=== PATIENT | male | born 1945 | race Hispanic/Latino ===

== ENCOUNTER 2019-02-08 18:29 | Inpatient (IN) | payer MEDICARE, OTHER ==
[~2019-02-08] VITALS: Ht 162.6 cm; Wt 68.5 kg
[2019-02-08 19:22] LABS: BASOPHILS % 0.4 % (0.0-1.0); EOSINOPHILS # (AUTO) 0.1 (0.0-0.4); EOSINOPHILS % 0.5 % (0.0-6.0); HEMATOCRIT 40.2 % (38.2-49.6); HEMOGLOBIN 13.7 g/dL (14.0-18.0); LYMPHOCYTES # (AUTO) 1.4 (1.0-3.2); LYMPHOCYTES % 13.7 % (18.0-39.1); MEAN CORPUSCULAR HGB CONC 34.1 g/dL (31-35); MEAN CORPUSCULAR VOLUME 82.2 fL (81-99); MONOCYTES % 9.7 % (4.4-11.3); NEUTROPHILS # (AUTO) 7.5 (2.1-6.9); NEUTROPHILS % 75.3 % (38.7-80.0); PLATELET COUNT 259 x10e3/uL (140-360); RED BLOOD COUNT 4.89 x10e6/uL (4.3-5.7); RED CELL DISTRIBUTION WIDTH 13.2 % (11.7-14.4)
[2019-02-08 19:38] LABS: INR 0.97; PARTIAL THROMBOPLASTIN TIME 35.9 seconds (23.8-35.5); PROTHROMBIN TIME 13.4 seconds (11.9-14.5)
[2019-02-08 19:45] LABS: ALBUMIN 3.8 g/dL (3.5-5.0); ALBUMIN/GLOBULIN RATIO 0.9 (0.8-2.0); ANION GAP 18.1 mmol/L (8-16); CALCIUM 10.2 mg/dL (8.4-10.2); CREATININE, SERUM 1.25 mg/dL (0.72-1.25); POTASSIUM 4.1 mmol/L (3.5-5.1)
--- NOTE | 2019-02-08 20:00 | Diagnostic Imaging Report ---
EXAMINATION: CHEST SINGLE (PORTABLE) INDICATION: Right sided weakness. COMPARISON: None FINDINGS: TUBES and LINES: None. LUNGS: Low lung volumes which decreases sensitivity and specificity for pathology. High density nodule projecting at the right costophrenic angle likely represents calcified granuloma. Mild patchy bibasilar opacities, likely atelectasis. Central vascular congestion without pulmonary edema PLEURA: No pleural effusion or pneumothorax. HEART AND MEDIASTINUM: The cardiomediastinal silhouette is unremarkable. BONES AND SOFT TISSUES: No acute osseous lesion. Soft tissues are unremarkable. UPPER ABDOMEN: No free air under the diaphragm. IMPRESSION: No acute radiographic abnormality Signed by: Dr. Ross Langford MD on 02/08/2019 7:57 PM
--- NOTE | 2019-02-08 20:12 | Diagnostic Imaging Report ---
History: Right arm weakness, 1 day. Comparison studies:None Technique: Axial images were obtained from the brain and cervical spine. Coronal and sagittal images reconstructed from the axial data. Intravenous contrast: None Dose modulation, iterative reconstruction, and/or weight based adjustment of the mA/kV was utilized to reduce the radiation dose to as low as reasonably achievable. Findings: Head CT: Scalp/skull: No abnormalities. No fractures, blastic or lytic lesions. Brain sulci: Mildly prominent. Ventricles: Mildly prominent. No hydrocephalus. Extra-axial spaces: No masses. No fluid collections. Parenchyma: 1.4 cm hypodensity left posterior putamen, without volume loss. Small hypodensities of the left centrum semiovale. No masses, hemorrhage, acute or chronic cortical vascular insults. Sellar/suprasellar region: No abnormalities. Craniocervical junction: Patent foramen magnum. No Chiari one malformation. Atherosclerotic calcifications of the carotid siphons. Cervical spine CT: Fractures: None. Soft tissues: No gross abnormalities. Atlantoaxial articulation: Intact. Alignment: Normal lordosis. No scoliosis. Cervicomedullary junction: No abnormalities. Patent foramen magnum. Vertebrae: No infection or neoplasm. Degenerative changes: No high-grade canal stenosis or foraminal narrowing. Incidental findings: Atherosclerotic calcifications of the carotid bulbs Mildly proximal esophagus thickened wall, nonspecific. Impression: Head CT: 1. Acute/subacute lacunar infarct in the left putamen. 2. Age indeterminant small left centrum semiovale ovale lacunar infarcts. Cervical spine CT: 1. No acute abnormalities. 2. Cannot exclude ligament, spinal cord and or vascular abnormalities on the basis of this examination. The above finding was reported and acknowledged by Dr. Morgan at 7:59 PM 02/08/2019. Signed by: DR Juan Miguel Mg M.D. on 02/08/2019 8:08 PM
--- OUTSIDE RECORDS SUMMARY | 2019-02-08 20:36 | XMS REPORT ---
Author Author [facility] Address Unknown Phone Unavailable Care Team Providers Care Tool Chaser Name Role Phone Kal FLORES Unavailable Unavailable Problems This patient has no known problems. Allergies, Adverse Reactions, Alerts This patient has no known allergies or adverse reactions. Medications This patient has no known medications. Results Test Description Test Time Test Comments Text Results Atomic Results Result Comments CT CERVICAL SPINE WO 2019-02-08 19:57:00 [place] [id number] [place] [address] Patient Name: CIARRA HANNA MR #: [id number] : 1945 Age/Sex: 73/M Req #: [id number] Adm Physician: Ordered by: EDIL GLOVER NETWORK SYSTEMS ADMINISTRATOR Report #: [id number] Location: ER Room/Bed: Procedure: [id number] CT/CT CERVICAL SPINE WO Exam Date: 02/08/19 Exam Time: 1905 REPORT STATUS: Signed History: Right arm weakness, 1 day. Comparison stud ies:None Technique: Axial images were obtained from the brain and cervical spine. Coronal and sagittal images reconstructed from the axial data. Intravenous contrast: None Dose modulation, iterative reconstruction, and/or weight based adjustment of the mA/kV was utilized to reduce the radiation dose to as low as reasonably achievable. Findings: Head CT: Scalp/skull: No abnormalities. No fractures, blastic or lytic lesions. Brain sulci: Mildly prominent. Ventricles: Mildly prominent. No hydrocephalus. Extra-axial spaces: No masses. No fluid collections. Parenchyma: 1.4 cm hypodensity left posterior putamen, without volume loss. Small hypodensities of the left centrum semiovale. No masses, hemorrhage, acute or chronic cortical vascular insults. Sellar/suprasellar region: No abnormalities. Craniocervical junction: Patent foramen magnum. No Chiari one malformation. Atherosclerotic calcifications of the carotid siphons. Cervical spine CT: Fractures: None. Soft tissues: No gross abnormalities. Atlantoaxial articulation: Intact. Alignment: Normal lordosis. No scoliosis. Cervicomedullary junction: No abnormalities. Patent foramen magnum. Vertebrae: No infection or neoplasm. Degenerative changes: No high-grade canal stenosis or foraminal narrowing. Incidental findings: Atherosclerotic calcifications of the carotid bulbs Mildly proximal esophagus thickened wall, nonspecific. Impression: Head CT: 1. Acute/subacute lacunar infarct in the left putamen. 2. Age indeterminant small left centrum semiovale ovale lacunar infarcts. Cervical spine CT: 1. No acute abnormalities. 2. Cannot exclude ligament, spinal cord and or vascular abnormalities on the basis of this examination. The above finding was reported and acknowledged by Dr. Morgan at 7:59 PM 02/08/2019. Signed by: DR Juan Miguel Mg M.D. on 02/08/2019 8:08 PM Dictated By: JUAN MIGUEL GARZA MD 07 Transcribed By: GILMAR on 02/08/192007 COPY TO: EDIL GLOVER NP CT BRAIN WO 2019-02-08 19:57:00 [place] [address] Patient Name: CIARRA HANNA MR #: [id number] : 1945 Age/Sex: 73/M Req #: [id number] Adm Physician: Ordered by: EDIL GLOVER NP Report #: [id number] Location: ER Room/Bed: Procedure: [id number] CT/CT BRAIN WO Exam Date: 02/08/19 Exam Time: 1905 REPORT STATUS: Signed History: Right arm weakness, 1 day. Comparison studies:None Technique: Axial images were obtained from the brain and cervical spine. Coronal and sagittal images reconstructed from the axial data. Intravenous contrast: None Dose modulation, iterative reconstruction, and/or weight based adjustment of the mA/kV was utilized to reduce the radiation dose to as low as reasonably achievable. Findings: Head CT: Scalp/skull: No abnormalities. No fractures, blastic or lytic lesions. Brain sulci: Mildly prominent. Ventricles: Mildly prominent. No hydrocephalus. Extra-axial spaces: No masses. No fluid collections. Parenchyma: 1.4 cm hypodensity left posterior putamen, without volume loss. Small hypodensities of the left centrum semiovale. No masses, hemorrhage, acute or chronic cortical vascular insults. Sellar/suprasellar region: No abnormalities. Craniocervical junction: Patent foramen magnum. No Chiari one malformation. Atherosclerotic calcifications of the carotid siphons. Cervical spine CT: Fractures: None. Soft tissues: No gross abnormalities. Atlantoaxial articulation: Intact. Alignment: Normal lordosis. No scoliosis. Cervicomedullary junction: No abnormalities. Patent foramen magnum. Vertebrae: No infection or neoplasm. Degenerative changes: No high- grade canal stenosis or foraminal narrowing. Incidental findings: Atherosclerotic calcifications of the carotid bulbs Mildly proximal esophagus thickened wall, nonspecific. Impression: Head CT: 1. Acute/subacute lacunar infarct in the left putamen. 2. Age indeterminant small left centrum semiovale ovale lacunar infarcts. Cervical spine CT: 1. No acute abnormalities. 2. Cannot exclude ligament, spinal cord and or vascular abnormalities on the basis of this examination. The above finding was reported and acknowledged by Dr. Morgan at 7:59 PM 02/08/2019. Signed by: DR Juan Miguel Mg M.D. on 02/08/2019 8:08 PM Dictated By: JUAN MIGUEL GARZA MD 07 Transcribed By: GILMAR on 02/08/192007 COPY TO: EDIL GLOVER NP CHEST SINGLE (PORTABLE) 2019-02-08 19:55:00 [place] [address] Patient Name: CIARRA HANNA MR #: [id number] : 1945 Age/Sex: 73/M Req #: [id number] Adm Physician: Ordered by: EDIL GLOVER NP Report #: [id number] Location: ER Room/Bed: Procedure: [id number] DX/CHEST SINGLE (PORTABLE) Exam Date: 02/08/19 Exam Time: 1915 REPORT STATUS: Signed EXAMINATION: CHEST SINGLE (PORTABLE) IND ICATION: Right sided weakness. COMPARISON: None FINDINGS: TUBES and LINES: None. LUNGS: Low lung volumes which decreases sensitivity and specificity for pathology. High density nodule projecting at the right costophrenic angle likely represents calcified granuloma. Mild patchy bibasilar opacities, likely atelectasis. Central vascular congestion without pulmonary edema PLEURA: No pleural effusion or pneumothorax. HEART AND MEDIASTINUM: The cardiomediastinal silhouette is unremarkable. BONES AND SOFT TISSUES: No acute osseous lesion. Soft tissues are unremarkable. UPPER ABDOMEN: No free air under the diaphragm. IMPRESSION: No acute radiographic abnormality Signed by: Dr. Dameon Dale MD on 02/08/2019 7:57 PM Dictated By: DAMEON DALE MD 56 Transcribed By: GILMAR on 02/08/191956 COPY TO: EDIL GLOVER NP
[2019-02-08] MEDS ORDERED: VITAMIN B-121000 MCG PO (21:24)
[2019-02-08] MEDS ORDERED: GLIMEPIRIDE1 MG PO (21:24)
[2019-02-08] MEDS ORDERED: AMLODIPINE BES2.5 MG PO (21:24)
[2019-02-08] MEDS ORDERED: LISINOPRIL-HCT1 EAC1 PO (21:24)
[2019-02-08] MEDS ORDERED: ONE-TABLET-DAI1 EACH PO (21:24)
[2019-02-08] MEDS ORDERED: LEVOTHYROXINE75 MCG PO (21:24)
[2019-02-08] MEDS ORDERED: ASPIRIN EC81 MG PO (21:24)
[2019-02-08] MEDS ORDERED: METFORMIN HCL500 MG PO (21:24)
[2019-02-08] MEDS ORDERED: OMEPRAZOLE40 MG PO (21:24)
[2019-02-08] MEDS ORDERED: ATORVASTATIN CA40 MG PO (21:24)
[2019-02-08 21:31] VITALS: BP 126/72
[2019-02-08 21:49] VITALS: BP 142/75
[2019-02-09] VITALS (7 sets, daily range): BP systolic 123–190; BP diastolic 59–88
[2019-02-09 05:50] LABS: BASOPHILS # (AUTO) 0.1 (0.0-0.1); BASOPHILS % 1.1 % (0.0-1.0); EOSINOPHILS # (AUTO) 0.3 (0.0-0.4); HEMOGLOBIN 11.5 g/dL (14.0-18.0); LYMPHOCYTES # (AUTO) 2.5 (1.0-3.2); LYMPHOCYTES % 27.5 % (18.0-39.1); MEAN CORPUSCULAR HEMOGLOBIN 27.9 pg (28-32); MEAN CORPUSCULAR HGB CONC 33.8 g/dL (31-35); MEAN CORPUSCULAR VOLUME 82.5 fL (81-99); MONOCYTES # (AUTO) 1.3 (0.2-0.8); MONOCYTES % 14.7 % (4.4-11.3); NEUTROPHILS # (AUTO) 4.8 (2.1-6.9); NEUTROPHILS % 53.4 % (38.7-80.0); PLATELET COUNT 222 x10e3/uL (140-360); RED BLOOD COUNT 4.12 x10e6/uL (4.3-5.7); RED CELL DISTRIBUTION WIDTH 13.3 % (11.7-14.4)
[2019-02-09 06:15] LABS: ALBUMIN 3.1 g/dL (3.5-5.0); ANION GAP 12.7 mmol/L (8-16); CALCIUM 8.8 mg/dL (8.4-10.2); CREATININE, SERUM 1.22 mg/dL (0.72-1.25); POTASSIUM 3.7 mmol/L (3.5-5.1)
--- NOTE | 2019-02-09 07:00 | NUR ---
BEDSIDE ROUNDS COMPLETE NO DISTRESS NOTED, UPDATED ON POC VOICED UNDERSTANDING, DENIES PAIN AT THIS TIME, CALL LIGHT IN REACH WILL CONTINUE TO MONITOR
[2019-02-09] MEDS ORDERED: ONDANSETRON HCL INJ 2MG/ML 2ML 2 MG/ML VIAL IV PRN (08:15)
[2019-02-09] MEDS ORDERED: HYDROCODONE/APAP 5MG-325MG TAB PO PRN (08:15)
[2019-02-09] MEDS ORDERED: ACETAMINOPHEN 325 MG TAB PO PRN (08:15)
[2019-02-09] MEDS ORDERED: LISINOPRIL 20 MG TAB PO SCH (09:00)
[2019-02-09] MEDS: LEVOTHYROXINE SODIUM 75 MCG TAB PO SCH (09:00)
[2019-02-09] MEDS ORDERED: AMLODIPINE BESYLATE 5 MG TAB PO SCH ×2 (09:00→12:15)
[2019-02-09] MEDS ORDERED: ASPIRIN 81 MG CHEW TAB PO ONE (09:30)
[2019-02-09] MEDS: PANTOPRAZOLE SOD 40 MG TABEC PO SCH (09:40)
[2019-02-09] MEDS: GLIMEPIRIDE 2 MG TAB PO SCH (09:40)
[2019-02-09] MEDS: HYDROCHLOROTHIAZIDE 25 MG TAB PO SCH (09:40)
--- NOTE | 2019-02-09 10:01 | NUR ---
PAGED DR. ILA AVELAR COVERING FOR DR MOREIRA, RE CONSULT AWAITING CALL BACK
--- NOTE | 2019-02-09 10:18 | NUR ---
PAGED DR AVELAR AWAITING CALL BACK
--- NOTE | 2019-02-09 10:58 | NUR ---
SPOKE WITH DR AVELAR INFORMED OF CONSULT STATES HE DOES NOT SEE PATIENTS FOR DR PORTILLO. WILL NOTIFY DR PORTILLO
--- NOTE | 2019-02-09 11:40 | NUR ---
INFORMED DR PORTILLO RE: CONSULT DR AVELAR WILL NOT SEE PATIENT. WILL NOTIFY ADMINISTRATION.
--- NOTE | 2019-02-09 12:00 | NUR ---
NOTIFIED Samira CAMARILLOO, RE: CONSULT FOR DR AVELAR AND NOT SEEING PT.
[2019-02-09] MEDS ORDERED: LISINOPRIL 20 MG TAB PO NR (12:45)
[2019-02-09] MEDS: AMLODIPINE BESYLATE 10 MG TAB PO SCH (13:01)
--- NOTE | 2019-02-09 13:41 | NUR ---
SPOKE WITH DR MEDELLIN NEUROLOGIST RE: CONSULT MD OUT TILL SATURDAY.
--- NOTE | 2019-02-09 14:12 | NUR ---
INFORMED RABIA CNO RE: DR MEDELLIN NEUROLOGIST OUT TILL SATURDAY.
--- NOTE | 2019-02-09 15:03 | Diagnostic Imaging Report ---
ADDENDUM #1 Please note the following dictation errors: Under incidental findings the following should read, "A T2 hyperintense 7 mm nodule in the superficial lobe of the left parotid gland may be a lymph node or possibly small neoplasm of salivary origin such as a pleomorphic adenoma. In the impression, under numeral two, the following should read, "left ICA occluded or with flow limiting stenosis." Signed by: Dr. Mil Wright M.D. on 02/10/2019 2:19 PM ORIGINAL REPORT History: Acute CVA Comparison studies: Head CT 02/08/2019 Technique: Sagittal and axial T2 FS, axial DWI, axial T2*GRE, axial T1 FLAIR and axial coronal T2 FLAIR. Intravenous contrast: None Findings: Scalp: Normal in signal. No masses. Bone marrow: Normal in signal intensity. Brain sulci: Appropriate for age. Ventricles: Normal in size. No hydrocephalus. Extra axial spaces: No mass, no fluid collection. Parenchyma: Late acute to early subacute nonhemorrhagic posterior left striatocapsular infarct extends from the posterior body of the caudate nucleus to the left putamen with associated restricted diffusion and T2 FLAIR hyperintensity. Small chronic lacunar infarcts present in the left centrum semiovale white matter along the left internal MCA border zone. A few additional scattered T2 FLAIR hyperintense foci within the supratentorial white matter (left greater than right) are nonspecific but are most compatible chronic microvascular ischemic changes. Suprasellar region: No abnormalities. Craniocervical junction: Patent foramen magnum. No Chiari malformation. Vessels: Absence of the normal flow-void within the left internal carotid artery due to ICA occlusion or flow-limiting stenosis. Flow-voids in the remaining major intracranial arteries and dural venous sinuses are maintained. Incidental findings: A T2 hyperintense 7 mm nodule in the superficial lobe of the left parotid gland may be a lymph node or possibly small neoplasm of salivary origin such as a more adenoma. Targeted ultrasound may initially further evaluate. IMPRESSION: 1. Unchanged late acute-early subacute nonhemorrhagic posterior left striatocapsular infarct. 2. Left ICA occluded or flow-limiting stenosis. 3. Small chronic insufficiency infarcts along the left internal MCA border zone. 4. Mild chronic microvascular ischemic changes. 5. Incidental small left parotid nodule, as described. Recommend cervical and intracranial CTA or MRA to further evaluate the vasculature. Findings and recommendations discussed with Dr. Carr at 2:59 PM on 02/09/2019. Signed by: Dr. Mil Wright M.D. on 02/09/2019 3:00 PM
[2019-02-09] MEDS: SODIUM CHLORIDE 0.9% 1000ML 1,000 ML IV SCH (15:10)
[2019-02-09] MEDS ORDERED: DEXTROSE 50% SYRINGE 50 ML IV PRN (15:15)
[2019-02-09] MEDS: INSULIN LISPRO 100 UNIT/1 ML 3ML VIAL SQ SCH ×2 (16:07→21:00)
--- NOTE | 2019-02-09 17:30 | History and Physical ---
CHIEF COMPLAINT: Right upper and lower extremity weakness with slurred speech. HISTORY OF PRESENT ILLNESS: This is a 73-year-old male with known history of hypertension, type 2 diabetes. He does follow up with the primary care physician and also underlying hypothyroidism. He presented to the emergency room last night with complaints of right upper and lower extremity weakness ongoing around 3 a.m. early in the morning at home. The patient reports that around 3 a.m. on 02/08/2019, he got up to go to the restroom from his home bed, noticed that he was very weak on the right upper and lower extremities and had some slurred speech. At that time, he did not think much of it, went to bed, he woke up, noticed that he was getting even more weaker on the right side and had worsening slurred speech, and came into the emergency room for further evaluation and management. The patient was outside of the 4-hour window period for tPA. On arrival here, when he showed up, it seems that the patient had some residual right upper and lower extremity weakness and slurred speech. During my evaluation, the patient reports that he feels still weak on the right upper and lower extremity, but seems to have improved compared to yesterday. He does have slurred speech on examination. CTA of the head was performed and a CT of the brain was performed shows an acute and subacute lacunar infarct on the left putamen. The patient was seen and evaluated at bedside on the medical floor. He is currently doing well with no other issues at this time. REVIEW OF SYSTEMS: Pertinent positives: Right upper and lower extremity weakness as well as slurred speech. Pertinent negatives: Denies any chest pain, palpitation, nausea, vomiting, diarrhea, dysuria, hematuria, frequency, urgency, lightheadedness, dizziness, abdominal pain, headaches, shortness of breath, cough, congestion, fever, or any other complaints. The rest of 14-point review of systems have been reviewed with the patient and are negative. ALLERGIES: NO KNOWN DRUG ALLERGIES. HOME MEDICATIONS: He takes: 1. Amlodipine 2.5 mg daily. 2. Loperamide 1 mg p.o. daily. 3. Levothyroxine 75 mcg daily. 4. Lisinopril and hydrochlorothiazide 20/25 mg one tab daily. 5. Omeprazole 40 mg daily. 6. He takes metformin. 7. Aspirin. 8. Atorvastatin. PAST MEDICAL HISTORY: Type 2 diabetes, hypertension, and hypothyroidism. PAST SURGICAL HISTORY: Reports none. FAMILY HISTORY: Hypertension and diabetes. SOCIAL HISTORY: No drugs. No alcohol. Does not smoke. Good social support. PHYSICAL EXAMINATION: VITAL SIGNS: Temperature is 96.9, pulse 69, respiratory rate is 18, blood pressure 160/72, and pulse ox 95% on room air. GENERAL: Not in acute distress. Alert and oriented x3. He does have slurred speech on examination. HEENT: Head; normocephalic, atraumatic. Eyes; pupils are equal, round, and reactive to light bilaterally. Extraocular movements intact bilaterally. Throat; no evidence of erythema or exudates in the posterior pharynx. Has poor dentition. NECK: Supple. Good range of motion. PULMONARY: Clear to auscultation bilaterally. No wheezing, no rales, no rhonchi, no crackles appreciated. CARDIOVASCULAR: Positive S1 and S2. No murmurs, rubs, or gallops appreciated. ABDOMEN: Soft, nondistended, and nontender to palpation. Bowel sounds present. MUSCULOSKELETAL: Strength is 5/5 throughout. No evidence of any muscle deficits on examination. No weakness appreciated. NEUROLOGIC: The patient had slurred speech on examination. Right upper and lower extremity weakness appreciated 4/5. I will defer the rest of the neurological exam to Neurology. SKIN: Intact. Warm to touch. Good cap refill. PSYCHIATRIC: Normal affect and mood. EXTREMITIES: No edema. Good range of motion throughout. LABORATORY FINDINGS: Show white count is 9, hemoglobin 11, hematocrit is 34, platelets of 222. Coagulation; PT 13, INR 0.97, PTT 35. Chemistry; sodium 138, potassium 3.7, chloride 104, bicarb 25, anion gap of 12, BUN 19, creatinine is 1.2, glucose is 91, calcium 8.8. LFTs within normal range. CK is 221. Troponins were negative. Albumin 3.1. IMAGING STUDIES: CT of the brain shows acute and subacute lacunar infarct in the left putamen. Age-indeterminate left small centrum semiovale lacunar infarcts. CT cervical neck shows no acute abnormalities. Chest x-ray was found to be negative. IMPRESSION: 1. Acute cerebrovascular accident seen on imaging studies. 2. Type 2 diabetes. 3. Hyperlipidemia. 4. Hypertension. PLAN: At this time, the patient has slurred speech and right upper and lower extremity weakness due to acute CVA. He was given chewable aspirin this morning and also be on the daily aspirin as well as a statin. I did order A1c, lipid panel, and TSH levels. Neurology has been consulted. MRI of the brain, carotid ultrasound, 2D echo with bubble study has been ordered as well. He will also get PT and OT evaluation. We will consult with the rehab physician as well. As for the hypertension, we will resume same antihypertensive medications for now. Monitor blood pressure very closely. I did order an A1c. Resume all anti-glycemic medications that he takes at home and monitor closely. PT and OT have been ordered. We will start him on Lovenox for DVT prophylaxis as well. I discussed overall plan of care with the patient at bedside and with the nursing staff as well, and they all verbalized understanding and agreed to plan of care. MD LO Wilkins/KATLYN /[id number]
--- NOTE | 2019-02-09 19:00 | NUR ---
Bedside rounding completed with morning nurse. Pt alert and oriented to name. Pt lying in bed HOB 45 degrees. Denies pain at this time. Call light within reach. Bed low and locked. Bed alarm on.
[2019-02-09] MEDS: ATORVASTATIN 40 MG TAB PO SCH (21:00)
[2019-02-09] MEDS ORDERED: SODIUM CHLORIDE 0.9% 100 ML ONE (22:26)
[2019-02-09] MEDS ORDERED: IOPAMIDOL 370 MG/ML 200 ML INFUS..BTL INJ ONE (22:26)
[2019-02-10] VITALS (8 sets, daily range): BP systolic 99–150; BP diastolic 54–81
--- NOTE | 2019-02-10 00:46 | Diagnostic Imaging Report ---
History:Dizziness, carotid stenosis, Comparison studies:CT head 02/08/2019, MRI brain Technique: Axial images were obtained from the thoracic inlet. 3-D reconstructions and maximum intensity projection reformats were performed. Coronal and sagittal images reconstructed from the axial data. Intravenous contrast: 100 cc of Omnipaque 300. Dose modulation, iterative reconstruction, and/or weight based adjustment of the mA/kV was utilized to reduce the radiation dose to as low as reasonably achievable. Findings: Percentage of stenosis will be based on the NASCET criteria Aortic arch and major vessels: Patent. No abnormalities. Common carotid arteries: Patent. No abnormalities. Right internal carotid artery: Patent. Nonstenotic atherosclerotic calcifications at bulb (0%). Left internal carotid artery: Nonopacification from the bulb through the cavernous segment which has spotted opacification. Reconstitution of flow to the ophthalmic ICA from ophthalmic artery and anterior communicating artery. Right vertebral artery: Patent. No abnormalities. Left vertebral artery: Patent. No abnormalities. Basilar artery: Patent. No abnormalities. Posterior cerebral arteries: Patent. No abnormalities. Anatomical variants: Acom: Patent . Pcoms: Not well visualized. Vertebral arteries: Dominant left. IMPRESSION: Cervical CTA: 1. Occlusion of the left internal carotid artery cervical segment through the cavernous segment with distal reconstitution at the ophthalmic ICA. 2. No other significant stenosis at the cervical arteries. 3. Subacute infarct at the left putamen, stable. Intracranial CTA: 1. Reconstitution of flow at the ophthalmic ICA on the left through collaterals without other hemodynamically significant stenosis of the [place] Signed by: DR Juan Miguel Mg M.D. on 02/10/2019 12:43 AM
[2019-02-10 05:36] LABS: BASOPHILS # (AUTO) 0.1 (0.0-0.1); BASOPHILS % 1.3 % (0.0-1.0); EOSINOPHILS # (AUTO) 0.3 (0.0-0.4); EOSINOPHILS % 4.2 % (0.0-6.0); HEMATOCRIT 34.6 % (38.2-49.6); HEMOGLOBIN 11.4 g/dL (14.0-18.0); LYMPHOCYTES # (AUTO) 2.2 (1.0-3.2); LYMPHOCYTES % 28.4 % (18.0-39.1); MEAN CORPUSCULAR HEMOGLOBIN 27.8 pg (28-32); MEAN CORPUSCULAR HGB CONC 32.9 g/dL (31-35); MEAN CORPUSCULAR VOLUME 84.4 fL (81-99); MONOCYTES % 13.6 % (4.4-11.3); NEUTROPHILS % 52.1 % (38.7-80.0); PLATELET COUNT 245 x10e3/uL (140-360); RED CELL DISTRIBUTION WIDTH 13.2 % (11.7-14.4)
[2019-02-10 05:58] LABS: ANION GAP 12.8 mmol/L (8-16); CALCIUM 8.6 mg/dL (8.4-10.2); CHOL/HDL RATIO 4.2 (3.9-4.7); CREATININE, SERUM 1.31 mg/dL (0.72-1.25); POTASSIUM 3.8 mmol/L (3.5-5.1)
[2019-02-10] MEDS: LEVOTHYROXINE SODIUM 75 MCG TAB PO SCH (06:00)
--- NOTE | 2019-02-10 06:22 | NUR ---
Showered. Taken for Colonoscopy, consent signed. Denies pain. No acute distress noted. Addendum: 02/10/19 at 0720 by Ambrocio Guillen RN wrong chart
--- NOTE | 2019-02-10 06:50 | NUR ---
BS rounds completed with morning nurse. Pt denies pain. No acute distress noted.
[2019-02-10] MEDS: INSULIN LISPRO 100 UNIT/1 ML 3ML VIAL SQ SCH ×4 (07:30→21:00)
[2019-02-10] MEDS: GLIMEPIRIDE 2 MG TAB PO SCH (08:27)
[2019-02-10] MEDS: ASPIRIN 325 MG TAB PO SCH (08:27)
[2019-02-10] MEDS: AMLODIPINE BESYLATE 10 MG TAB PO SCH (08:27)
[2019-02-10] MEDS: SODIUM CHLORIDE 0.9% 1000ML 1,000 ML IV SCH ×2 (08:27→21:00)
[2019-02-10] MEDS: HYDROCHLOROTHIAZIDE 25 MG TAB PO SCH (08:27)
[2019-02-10] MEDS: PANTOPRAZOLE SOD 40 MG TABEC PO SCH (08:28)
[2019-02-10] MEDS ORDERED: LISINOPRIL 20 MG TAB PO SCH (09:00)
[2019-02-10] MEDS ORDERED: ASPIRIN 81 MG CHEW TAB PO SCH (09:00)
--- NOTE | 2019-02-10 11:25 | Progress Note ---
DATE: 02/10/2019 Medicine Progress Note SUBJECTIVE: The patient is doing much better. His right upper and lower extremity weakness has improved. His slurred speech improved as well. No overnight events. PHYSICAL EXAMINATION: VITAL SIGNS: Temperature is 98.6, pulse 67, respiratory rate is 20, blood pressure 105/59, pulse ox 98% on room air. GENERAL: Not in acute distress. Alert and oriented x3. Cooperative on examination. HEENT: Head; normocephalic, atraumatic. Eyes; pupils are equal, round, and reactive to light bilaterally. Extraocular movements intact bilaterally. Throat; no evidence of erythema or exudates in the posterior pharynx. Has poor dentition. NECK: Supple. Good range of motion. PULMONARY: Clear to auscultation bilaterally. No wheezing, no rales, no rhonchi, no crackles appreciated. CARDIOVASCULAR: Positive S1 and S2. No murmurs, rubs, or gallops appreciated. ABDOMEN: Soft, nondistended, and nontender to palpation. Bowel sounds present. MUSCULOSKELETAL: Strength is on the right upper and lower extremities 4/5, left side was 5/5. NEUROLOGIC: There is no evidence of any slurred speech today. He does have weakness in the right upper and lower extremity. SKIN: Intact. Warm to touch. Good cap refill. PSYCHIATRIC: Normal affect and mood. EXTREMITIES: No edema. Good range of motion throughout. LABORATORY FINDINGS: Show white count is 7.6, hemoglobin 11.4, hematocrit is 35, platelets of 245. Chemistry; sodium 137, potassium 3.8, chloride 104, bicarbonate 24, anion gap of 12, BUN is 19, creatinine is 1.3, glucose is 86, calcium is 8.6, LDL 75. Labs reviewed and stable. IMAGING STUDIES: MRI of the brain confirmed an acute early subacute nonhemorrhagic posterior left striatocapsular infarct. Left ICA occluded or flow-limiting stenosis. Small chronic insufficiency infarct along the left internal MCA border zone. Mild chronic microvascular ischemic changes. Incidental small left parietal nodule, will need outpatient followup on that. CTA head and neck were performed, that showed occlusion of the left internal carotid artery cervical segment through the cavernous segment with distal reconstitution at the ophthalmic ICA. There was subacute infarct at the left putamen, which was stable. In terms of the CT of the head, reconstitution of flow at the ophthalmic ICA on the left stenosis of the [place]. IMPRESSION: 1. Acute cerebrovascular accident. 2. Left internal carotid stenosis. 3. Type 2 diabetes. 4. Hyperlipidemia. 5. Hypertension. PLAN: At this time, his right upper and lower extremity weakness has improved. We will continue with aspirin 325 daily as well as statin. CTA of the head and neck was noted to have stenosis of the internal carotid artery, which I will go ahead and consult with Vascular Surgery to come and evaluate and treat. A 2D echo still not available at this time, final results. Carotid ultrasound probably not indicated after the CTA report has been available now. Continue working with PT and OT. Currently, we do not have a neurologist available at this time. We will continue with aspirin and statin until neurologist is available possibly tomorrow. Continue with Lovenox for DVT prophylaxis as well and continue working with physical therapy and occupational therapy. Also, we will consult with Physical Medicine Rehab to come and evaluate the patient further. Otherwise, his A1c is stable. LDL is appropriate at 75. We will continue with same plan of care and monitor closely. Discussed plan of care with the patient with nursing staff present. MD LO Wilkins/KATLYN /[id number]
--- NOTE | 2019-02-10 14:15 | NUR ---
Visit made by the Spiritual Care Department Pastoral Visitor, Margareth Johansen. Pt sleeping soundly and no family present. Pastoral Visitor left a card describing availability of fitter up and instructions on how to contact a fitter up. HEBERT WEINBERG [employer] Spiritual Care Department O: [phone] Pager: [phone] ([phone] number calling from)
[2019-02-10] MEDS: ENOXAPARIN SOD INJ 40 MG/0.4 ML SYR SC SCH (16:33)
--- NOTE | 2019-02-10 19:00 | NUR ---
Report received from morning nurse. Pt alert and oriented to name. Pt lying in bed HOB 45 degrees. Denies pain at this time. Call light within reach. Family at bedside. Bed low and locked.
--- NOTE | 2019-02-10 19:12 | NUR ---
Report given to oncoming nurse of patients status. Resting in bed. No s/s of acute distress noted. Family at bedside. Side rails upx2, call light within reach, bed alarm on.
[2019-02-10] MEDS: ATORVASTATIN 40 MG TAB PO SCH (21:00)
[2019-02-11] VITALS (10 sets, daily range): BP systolic 117–189; BP diastolic 61–84
[2019-02-11 05:22] LABS: BASOPHILS # (AUTO) 0.1 (0.0-0.1); EOSINOPHILS # (AUTO) 0.4 (0.0-0.4); EOSINOPHILS % 5.4 % (0.0-6.0); HEMOGLOBIN 11.6 g/dL (14.0-18.0); LYMPHOCYTES # (AUTO) 2.5 (1.0-3.2); LYMPHOCYTES % 30.4 % (18.0-39.1); MEAN CORPUSCULAR HEMOGLOBIN 27.6 pg (28-32); MEAN CORPUSCULAR HGB CONC 33.1 g/dL (31-35); MEAN CORPUSCULAR VOLUME 83.3 fL (81-99); MONOCYTES # (AUTO) 1.2 (0.2-0.8); MONOCYTES % 14.7 % (4.4-11.3); NEUTROPHILS # (AUTO) 3.9 (2.1-6.9); NEUTROPHILS % 48.1 % (38.7-80.0); PLATELET COUNT 241 x10e3/uL (140-360); RED CELL DISTRIBUTION WIDTH 13.1 % (11.7-14.4)
[2019-02-11 05:39] LABS: ANION GAP 11.9 mmol/L (8-16); BLOOD UREA NITROGEN 14 mg/dL (7-26); BUN/CREATININE RATIO 13 (6-25); CARBON DIOXIDE 23 mmol/L (22-29); CHLORIDE 107 mmol/L (98-107); CREATININE, SERUM 1.09 mg/dL (0.72-1.25); EST GLOMERULAR FILTRATION RATE > 60 ML/MIN (60-); GLUCOSE 80 mg/dL (74-118); POTASSIUM 3.9 mmol/L (3.5-5.1); SODIUM 138 mmol/L (136-145)
[2019-02-11] MEDS: LEVOTHYROXINE SODIUM 75 MCG TAB PO SCH (05:44)
[2019-02-11] MEDS: INSULIN LISPRO 100 UNIT/1 ML 3ML VIAL SQ SCH ×4 (07:30→20:46)
[2019-02-11] MEDS: ASPIRIN 325 MG TAB PO SCH (08:01)
[2019-02-11] MEDS: AMLODIPINE BESYLATE 10 MG TAB PO SCH (08:01)
[2019-02-11] MEDS: PANTOPRAZOLE SOD 40 MG TABEC PO SCH (08:01)
[2019-02-11] MEDS: GLIMEPIRIDE 2 MG TAB PO SCH (08:01)
[2019-02-11] MEDS: SODIUM CHLORIDE 0.9% 1000ML 1,000 ML IV SCH ×2 (08:01→12:42)
[2019-02-11] MEDS: LISINOPRIL 10 MG TAB PO SCH (08:02)
--- NOTE | 2019-02-11 11:24 | NUR ---
ST NOTE: Pt unavailable for treatment due to heart catheterization. Will continue to follow
--- NOTE | 2019-02-11 11:36 | NUR ---
MITUL Chris has seen pt and explained procedure of heart cath and carotid angio pt verbalizes understanding pt has signed consent quality assurance lab technician team is here to take pt for procedure , team aware pt had breakfast this am
[2019-02-11] MEDS ORDERED: FENTANYL CITRATE/PF 100MCG/2 ML INJ ONE (11:40)
[2019-02-11] MEDS ORDERED: MIDAZOLAM HCL 2 MG/2 ML VIAL ONE (11:40)
[2019-02-11] MEDS ORDERED: LIDOCAINE HCL 2% LOCAL 20 ML VIAL ONE (11:40)
[2019-02-11] MEDS ORDERED: IOPAMIDOL 370 MG/ML 200 ML INFUS..BTL INJ ONE (11:41)
[2019-02-11] MEDS ORDERED: SODIUM CHLORIDE 0.9% 1000ML 1,000 ML ONE (11:41)
[2019-02-11] MEDS ORDERED: HEPARIN SOD/SOD CHLORIDE 2,000 ML ONE (11:41)
--- NOTE | 2019-02-11 12:40 | NUR ---
received report from kerrie in mechanical shop laborer no interventions made pt is returning back to floor with a right groin dressing awaiting for pt return
--- NOTE | 2019-02-11 13:00 | NUR ---
received pt to floor aa0x3 pt is in no s.s of distress right groin is clean and dry pedal pulses bilaterally present pt is on bedrest until 1700 pt aware will monitor closely
--- NOTE | 2019-02-11 13:58 | Consultation ---
DATE OF CONSULTATION: 02/11/2019 REASON FOR CONSULTATION: Cardiac evaluation given CVA and left ICA disease. HISTORY OF PRESENT ILLNESS: This is a 73-year-old male with history of hypertension, diabetes, hypothyroidism, and reflux. The patient presents to [facility] ER with complaints of right-sided weakness noted on CT with acute left lacunar infarct and carotid Doppler noted with 100% left ICA. However, the patient had an MRI, was unable to visualize right ICA. CV Surgery was consulted and is requesting carotid angiogram to evaluate anatomy. The patient is seen in room, in no acute distress. Reports on Saturday morning, he woke up around 3 in the morning, went to restroom and came back. However, when he came back, he fell asleep and when he woke up, he felt right-sided weakness and slurred speech. However, symptoms kind of dissipated and reappeared shortly after, however, did not come to the hospital until in the evening and when he was noted with left CVA. The patient denies any chest pains, any shortness of breath, or any palpitations. However, does report occasionally if he over exerts himself some chest tightness. PAST MEDICAL HISTORY: Hypertension, diabetes, reflux, and hypothyroidism. PAST SURGICAL HISTORY: Denies any surgeries. FAMILY HISTORY: Mother in her late 90s apparently from old age and father also in his late 90s and apparently "old age." SOCIAL HISTORY: Single. No kids. 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 Denies any tobacco use and social alcohol use. HOME MEDICATIONS: Include Norvasc 2.5 mg daily, aspirin 81 mg daily, atorvastatin 40 mg daily, levothyroxine 75 mcg daily, lisinopril/hydrochlorothiazide daily, metformin 500 mg b.i.d., and omeprazole 20 mg daily. ALLERGIES: NO KNOWN ALLERGIES. REVIEW OF SYSTEMS: GENERAL: Denies any weight changes or fatigue. Positive for right-sided weakness, any fevers, chills, or night sweats. SKIN: No rashes or bruises. HEENT: Denies any nausea, vomiting, vision changes, blurred vision, double vision, epistaxis, sore throat, or swollen gums. CARDIAC: Denies any chest pain, however, he does report occasional chest tightness. Positive for dyspnea on exertion. Denies any orthopnea, PND, or lower extremity edema. RESPIRATORY: Denies currently shortness of breath or any wheezing or coughing. GI: Denies any nausea, vomiting, diarrhea, constipation, melena, tarry or bloody stools. VASCULAR: Denies any lower extremity edema or claudication. MUSCULOSKELETAL: Positive for slight right-sided weakness. NEUROLOGIC: Positive for numbness and tingling on the right side, which are largely resolved. Denies any blackout or seizures. HEMATOLOGY: Denies any bruising or bleeding. ENDOCRINE: Denies heat or cold intolerance, polyphagia, or polydipsia. PHYSICAL EXAMINATION: VITAL SIGNS: Height 64 inches, weight 157 pounds, and BMI 26. Vital signs currently, temperature is 96.8, pulse 64, respiratory rate 18, blood pressure 121/61, and pulse ox 98% on room air. GENERAL: Appears stated age, reliable informant, in no acute distress. SKIN: No rashes or bruises noted. HEENT: Normocephalic. Pupils are equal and reactive. Extraocular movements intact. Trachea midline. Unable to auscultate left carotid. On right carotid, positive bruit. HEART: Regular rate and rhythm. PMI 4th and 5th intercostal space. No murmurs, gallops, or clicks noted. ABDOMEN: Soft, nontender, and nondistended. No organomegaly noted. MUSCULOSKELETAL: Slight right-sided weakness noted. VASCULAR: +2 bilateral radial pulses. +1 DP/PT pulses bilaterally. NEUROLOGIC: Cranial nerves II through XII seem intact. LABORATORY DATA: Sodium 137, potassium 3.8, chloride 104, BUN 19, and creatinine 1.3. Triglycerides 86, total cholesterol 121, LDL 75, and HDL 29. White count 8, hemoglobin 11, hematocrit 35, and platelets 241. CT brain showing acute left lacunar infarct. Carotid Doppler showing 100% left ICA and right ICA about 40% to 49%. Echocardiogram showed an EF of 55%. No PFO was appreciated. MRI showing left striatocapsular infarct, occluded left ICA. No mention of the right ICA. CTA of the neck and head showing occluded left ICA. No mention of the right ICA. EKG showing right bundle branch block. ASSESSMENT AND PLAN: 1. Left cerebrovascular accident. 2. Severe carotid disease with 100% left ICA. 3. Anginal equivalent symptoms. 4. Abnormal EKG: Right bundle branch block. 5. Diabetes. 6. Hypertension. 7. Hyperlipidemia. PLAN: The patient presents to [facility] with left-sided weakness, noted 100% left ICA. CV Surgery has been consulted and is requesting definitive exam to evaluate right carotid disease. The patient is seen and discussed carotid angiogram at length. Questions are answered. Risks and benefits were discussed. The patient wishes to proceed with carotid angiogram. Also, left heart catheterization was discussed at length given the patient's anginal equivalent symptoms and an abnormal EKG with risk factors. The patient agrees to having left heart catheterization done at the same time. Continue anti-platelet/statin therapy. Further recommendations post carotid angiogram/heart catheterization. Thank you very much for this consult. Dictated by Mil Israel NP SEEN AND EVALUATED, AGREE WITH NOTE Silas Hummel MD DC/KATLYN /[id number] BRENDA
--- NOTE | 2019-02-11 16:30 | Progress Note ---
DATE: 02/11/2019 Medicine Progress Note SUBJECTIVE: The patient underwent left heart catheterization and bilateral carotid angiogram today. He was found to have 100% occlusion in the left internal carotid artery. He was doing well post procedure. PHYSICAL EXAMINATION: VITAL SIGNS: Temperature is 98.2, pulse 69, respiration rate is 18, blood pressure 141/73, pulse ox 97% on room air. GENERAL: Not in acute distress. Alert and oriented x3. Cooperative on examination. HEENT: Head; normocephalic, atraumatic. Eyes; pupils are equal, round, and reactive to light bilaterally. Extraocular movements intact bilaterally. Throat; no evidence of erythema or exudates in the posterior pharynx. Has poor dentition. NECK: Supple. Good range of motion. PULMONARY: Clear to auscultation bilaterally. No wheezing, no rales, no rhonchi, no crackles appreciated. CARDIOVASCULAR: Positive S1 and S2. No murmurs, rubs, or gallops appreciated. ABDOMEN: Soft, nondistended, and nontender to palpation. Bowel sounds present. MUSCULOSKELETAL: Strength is 5/5 throughout. No evidence of any muscle deficits on examination. No weakness appreciated. NEUROLOGIC: Cranial nerve 2 through 12 grossly intact. No evidence of any neurological deficits on exam. SKIN: Intact. Warm to touch. Good cap refill. PSYCHIATRIC: Normal affect and mood. EXTREMITIES: No edema. Good range of motion throughout. LABORATORY DATA: Lab findings show CBC stable. Chemistry; reviewed, stable. IMPRESSION: 1. Acute cerebrovascular accident. 2. Left internal carotid stenosis confirmed on carotid angiogram performed on 02/11/2019. 3. Type 2 diabetes. 4. Hyperlipidemia. 5. Hypertension. 6. Left heart catheterization with clean coronaries. No percutaneous coronary intervention indicated on 02/11/2019. PLAN: At this time, I already spoke with vascular surgeon, he recommended an angiogram for the carotids as well as the heart to further evaluate in the event the patient needs surgery. I talked with Cardiology, Dr. Hummel and the patient already underwent a left heart catheterization and a bilateral carotid angiogram with results showing 100% occlusion in the left internal carotid and that the coronaries were clear with no indication for PCI. At this time, we will continue with aspirin 325 daily as well as a statin. I am still awaiting for Neurology recommendations. We less likely have one available at this time. Continue with aspirin and statin. Continue working with PT and OT as well as Physical Medicine and rehab. He is on Lovenox for DVT prophylaxis. Continue with low-dose IV fluids to avoid contrast induced nephropathy. Get a.m. labs. Consultants are Cardiology and Cardiothoracic Surgery. Otherwise, continue same plan of care. Monitor closely. MD LO Wilkins/KATLYN /[id number]
[2019-02-11] MEDS: ENOXAPARIN SOD INJ 40 MG/0.4 ML SYR SC SCH (16:34)
--- NOTE | 2019-02-11 16:35 | NUR ---
spoke with md schwarz regarding lovenox administration this afternoon states to hold dose for today and resume tomorrow 02/12/19
--- NOTE | 2019-02-11 18:25 | Consultation ---
DATE OF CONSULTATION: REFERRING PHYSICIAN: Dr. Alma Carr. I would like to thank Dr. Carr for asking me to see Mr. Angulo in consultation. REASON FOR CONSULTATION: 1. Status post acute left capsular infarct with mild right-sided hemiparesis. 2. Left ICA occluded. 3. The patient with type 2 diabetes. 4. Hypertension. 5. Hyperlipidemia. HISTORY: A 73-year-old Latin male with history of hypertension and diabetes, who came into the hospital after experiencing right arm and right leg weakness around 3 in the morning. Had some dysarthria. Went to the emergency room and underwent further workup. He was outside the window for tPA. He had a CTA of the brain, which showed an acute and subacute lacunar infarctions in the left putamen area. Also underwent workup and found to have a carotid bruit on the right, but not on the left, but showed occluded left ICA versus tight stenosis. He is being evaluated by Dr. Soares for evaluation. Clinically, however, the patient started to make really good recovery and started walking a lot more. He is much improved at this point, I am being asked to evaluate for rehab needs. PAST MEDICAL HISTORY: Includes diabetes, hypertension, and hyperlipidemia. ALLERGIES: NO KNOWN DRUG ALLERGIES. HABITS: Nonsmoker, nondrinker. SOCIAL HISTORY: Lives with his family in a one-story home. Prior to this admission he was not using any assistive device and was pretty much independent. He is retired. FAMILY HISTORY: Hypertension, diabetes runs in the family. LABORATORY STUDIES: White cell count of 9.9, hemoglobin 13.7, hematocrit 40.2, platelets of 259. Sodium is 138, potassium 3.9, BUN of 14, creatinine is 0.9. CTA showed occlusion of left internal carotid artery. No other significant stenosis of the cervical arteries. Reconstitution of flow of the ophthalmic ICA on the left through collaterals without other hemodynamically significant stenosis at the [place]. Chest x-ray showed no acute radiographic abnormality. MRI of the brain showed unchanged late acute to early subacute nonhemorrhagic posterior left striatocapsular infarct, left ICA occluded or flow-limiting stenosis. Small chronic insufficiency infarct along the left internal MCA border zone, mild chronic microvascular ischemic changes and small left parotid nodule. PHYSICAL EXAMINATION: GENERAL: The patient is awake, alert, in no apparent distress. He is demonstrating really good return at this time. EYES: Gaze conjugate. No visual field deficits. Extraocular muscles intact. Oral, tongue essentially midline with protrusion. He has little bit of right facial weakness, which is minimal at best. Sensory lobato, he is denying any numbness or tingling to his hands or his feet at this time. HEART: Regular rate and rhythm. LUNGS: Clear to auscultation. ABDOMEN: Nontender, nondistended. EXTREMITIES: Full range of motion arms as well as the legs. He still has some right side weakness per his report. 5/5 strength in the left arm and left leg throughout, 4+/5 strength with shoulder flexion and extension, 4+ to 5/5 strength surgery manager on the right, right lower extremity 4+/5 strength throughout. Review of the therapy notes shows that he is ambulating 400 feet without a walker, steady and safe, no loss of balance even with turning around 180 degrees. Noting that he has gotten a lot stronger overall. He is being dropped from PT due to his level of function. IMPRESSION: 1. Status post acute CVA with right-sided weakness with excellent return. 2. Occluded left ICA. 3. Diabetes. 4. Hypertension. PLAN: Dr. Soares is following for cardiovascular management. At this point, does not require inpatient rehab. Could possibly benefit from outpatient services, however, will be dependent on Dr. Soares's further evaluation. Overall he is doing well. Continue supportive care. Thank you once again for allowing me to participate in the care of this pleasant patient. Riley Lee DO RPL/MODL /[id number]
[2019-02-11] MEDS: ATORVASTATIN 40 MG TAB PO SCH (20:45)
--- NOTE | 2019-02-11 22:21 | Operative Report ---
DATE OF PROCEDURE: 02/11/2019 SURGEON: Kourtney Hummel MD PROCEDURE PERFORMED: 1. Left heart cardiac catheterization, coronary angiography. 2. Aortic arch angiography. 3. Selective right carotid angiography with extracranial views. 4. Selective left carotid angiography with extracranial views. 5. Selective left subclavian angiography. INDICATION FOR PROCEDURE: A 73-year-old gentleman with a history of hypertension, type 2 diabetes, complications of hypercholesteremia, presents to this institution with acute left cerebral stroke. Noninvasive evaluation with CTA of the head and neck and an MRI, MRA are suggestive of critical left ICA disease. However, there is conflicting data. Vascular Surgery was consulted and needed a definitive carotid angiography to determine next appropriate step of action and to see if he is a revascularization candidate. The patient is also in need for preoperative cardiovascular clearance. Upon probing, patient has endorses class 2-3 angina equivalent symptoms. DESCRIPTION OF PROCEDURE: After risks, benefits, pros and cons of today's procedure were explained, patient agreed to proceed. He was brought to the cardiac catheterization laboratory. The right groin was prepped and draped in the usual sterile fashion. A 1% lidocaine solution was used to numb right groin region. Access right femoral artery was obtained and a short four-Khmer femoral sheath was placed. Selective coronary angiography of the teller left number record is performed with JL4 and 3DRC diagnostic catheters. Afterwards, a pigtail catheter was placed in the arch for aortic arch angiography revealing a type 3 aortic arch. We took back the 3DRC diagnostic catheter and selected the origins of the right carotid, left carotid as well as left subclavian arteries for carotid angiography and left vertebral assessment. Essentially, this revealed 100% occluded left ICA, 50% right ICA and a vertebral with 90% ostial stenosis. At that point in time, we decided to conclude the case. At the conclusion of the case, the sheath was removed and manual compression was applied achieving hemostasis. COMPLICATIONS: None. ESTIMATED BLOOD LOSS: Minimal. FINDINGS: 1. Left main is angiographically normal. Gives rise to an LAD and circumflex branch. 2. The LAD has a 50% to 60% mid stenosis. The first diagonal branch has 70% proximal stenosis is small caliber vessel. 3. Left circumflex artery terminates into a large bifurcating mid marginal branch is a 40% mid circumflex artery stenosis. 4. RCA is dominant, gives rise to right PDA and right PLV branches 40% mid RCA stenosis. 5. Aortic arch is a type 3 arch with separate origins of the right brachiocephalic trunk, the left common carotid in the left subclavian artery. 6. The right ICA is 50% proximal stenosis. 7. Left ICA has 100% total occlusion with no flow just after the origin of the left ICA proper. 8. The left vertebral artery comes off the subclavian artery and has a 90% focal ostial stenosis. PLAN/RECOMMENDATIONS: 1. From a cardiovascular standpoint, we will leave coronary anatomy to medical management. 2. We will go ahead and review carotid angiogram findings with vascular surgery to determine next appropriate course of action in terms of his carotid disease. 3. Aggressive risk factor modification medical therapy. 4. Four hour bedrest post catheterization today. MD JACKI Avalos/HUSSAINL /[id number]
--- NOTE | 2019-02-12 00:17 | NUR ---
Assessment done.no resp.distress.no pain voiced.voided.pedal pulses obtained. right groin dressing dry.iv Left.ac is patent.bed locked and in lowest position.phone and call light within reach.instructed to call for asistance as needed.
[2019-02-12 00:45] VITALS: BP 116/72
[2019-02-12] MEDS: SODIUM CHLORIDE 0.9% 1000ML 1,000 ML IV SCH (02:10)
[2019-02-12 04:00] VITALS: BP 117/62
[2019-02-12] MEDS: LEVOTHYROXINE SODIUM 75 MCG TAB PO SCH (05:20)
[2019-02-12 05:36] LABS: BASOPHILS # (AUTO) 0.1 (0.0-0.1); BASOPHILS % 1.4 % (0.0-1.0); EOSINOPHILS # (AUTO) 0.4 (0.0-0.4); EOSINOPHILS % 5.1 % (0.0-6.0); HEMATOCRIT 33.6 % (38.2-49.6); HEMOGLOBIN 11.3 g/dL (14.0-18.0); LYMPHOCYTES # (AUTO) 2.1 (1.0-3.2); LYMPHOCYTES % 29.3 % (18.0-39.1); MEAN CORPUSCULAR HEMOGLOBIN 27.9 pg (28-32); MEAN CORPUSCULAR HGB CONC 33.6 g/dL (31-35); MONOCYTES % 13.5 % (4.4-11.3); NEUTROPHILS # (AUTO) 3.6 (2.1-6.9); NEUTROPHILS % 50.3 % (38.7-80.0); PLATELET COUNT 243 x10e3/uL (140-360); RED BLOOD COUNT 4.05 x10e6/uL (4.3-5.7)
[2019-02-12 05:58] LABS: ALANINE AMINOTRANSFERASE 13 IU/L (0-55); ALKALINE PHOSPHATASE 64 IU/L (40-150); ANION GAP 11.8 mmol/L (8-16); BLOOD UREA NITROGEN 12 mg/dL (7-26); BUN/CREATININE RATIO 13 (6-25); CALCIUM 7.9 mg/dL (8.4-10.2); CARBON DIOXIDE 23 mmol/L (22-29); CHLORIDE 108 mmol/L (98-107); CREATININE, SERUM 0.96 mg/dL (0.72-1.25); EST GLOMERULAR FILTRATION RATE > 60 ML/MIN (60-); GLUCOSE 82 mg/dL (74-118); POTASSIUM 3.8 mmol/L (3.5-5.1); SODIUM 139 mmol/L (136-145)
--- NOTE | 2019-02-12 07:00 | NUR ---
Bed side shift report given to the oncoming Rn.stable condition.
[2019-02-12] MEDS: INSULIN LISPRO 100 UNIT/1 ML 3ML VIAL SQ SCH ×3 (07:30→16:30)
[2019-02-12 07:49] VITALS: BP 127/63
[2019-02-12] MEDS: AMLODIPINE BESYLATE 10 MG TAB PO SCH (08:04)
[2019-02-12] MEDS: LISINOPRIL 10 MG TAB PO SCH (08:04)
[2019-02-12] MEDS: PANTOPRAZOLE SOD 40 MG TABEC PO SCH (08:04)
[2019-02-12] MEDS: GLIMEPIRIDE 2 MG TAB PO SCH (08:04)
[2019-02-12] MEDS: ASPIRIN 325 MG TAB PO SCH (08:04)
[2019-02-12 08:44] VITALS: BP 127/63
[2019-02-12 12:10] VITALS: BP 131/70
--- NOTE | 2019-02-12 12:48 | NUR ---
IMM explained to patient, patient signed, copy to patient, copy to chart
--- NOTE | 2019-02-12 16:13 | NUR ---
Order received for a walker. Dispensed walker to patient, patient signed, order pending MD signature
[2019-02-12] MEDS ORDERED: LISINOPRIL10 MG PO (16:18)
[2019-02-12 16:22] VITALS: BP 125/64
[2019-02-12] MEDS ORDERED: PLAVIX75 MG PO (16:31)
[2019-02-12] MEDS ORDERED: ASPIRIN81 MG PO (16:32)
[2019-02-12] MEDS ORDERED: LIPITOR20 MG PO (16:32)
--- NOTE | 2019-02-12 17:05 | NUR ---
discharge instructions and prescriptions given iv dc pressure dressing applied and taped follow ups addressed with cardiovascular, cardiology and ent pt verbalized understanding pt verbalized wanting hh with pt at home vs ot pt choice signed , walker provided pt is now ready for dc waiting for ride home at this time
[2019-02-12] MEDS: ENOXAPARIN SOD INJ 40 MG/0.4 ML SYR SC SCH (18:05)
--- NOTE | 2019-02-12 18:25 | NUR ---
pt off unit to home at this time
--- NOTE | 2019-02-12 19:52 | Consultation ---
DATE OF CONSULTATION: 02/10/2019 REASON FOR CONSULT: Stroke, carotid stenosis; requested by Dr. Kisha Carr. HISTORY: I saw and evaluated the patient on February 10, 2019. He is a 73-year-old man with hypertension and diabetes, who presented to [facility] with right upper extremity weakness. Evaluation included a CT scan that showed an acute left lacunar infarct. Carotid ultrasound showed an occluded or highly stenotic left internal carotid artery. MRI also showed likely occlusion of the left ICA. Ultrasound had shown possible tight stenosis. There was no mention of the right internal carotid artery on the MRI report. This CT angiogram reported a widely patent right internal carotid artery. Surgical evaluation is now requested. The patient has been recovering fairly quickly from his stroke. His right upper extremity strength and right lower extremity strength are back to normal. Initially, he had decreased sensation as well. These have almost completely resolved. No history of chest pain. No history of previous stroke. No history of previous TIA. Surgical evaluation is now requested. PAST MEDICAL HISTORY: Positive for hypertension, diabetes, gastroesophageal reflux, and hypothyroidism. MEDICATIONS: Include Norvasc, aspirin, atorvastatin, levothyroxine, lisinopril, metformin, and omeprazole. 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 Denies smoking or alcohol. FAMILY HISTORY: Mother in her late 90s. Father also apparently in his late 90s. PAST SURGICAL HISTORY: Unremarkable. ALLERGIES: NONE KNOWN. REVIEW OF SYSTEMS: GENERAL: Positive for fatigue and malaise. NEUROLOGIC: Negative for focal weakness in extremities or dysarthria. HEENT: Negative for decreased vision or decreased hearing. CARDIAC: Negative for chest pain or palpitations. PULMONARY: Negative for shortness of breath or wheezing. GI: No constipation or diarrhea. : Negative for hematuria or dysuria. ENDOCRINE: Negative for polyuria or polydipsia. VASCULAR: Negative for claudication. SKIN: Negative for rashes or itching. HEMATOLOGIC: Negative for clotting or bleeding. INFECTIOUS: Negative for fevers or sweating. PSYCHIATRIC: Negative for depression or anxiety. PHYSICAL EXAMINATION: GENERAL: Well-developed, well-nourished man, sitting up in bed, speaking without difficulty. VITAL SIGNS: Blood pressure 140/70, pulse 85 and regular, respirations 16 and unlabored. NECK: Supple. Nontender. No JVD. CARDIAC: Shows a regular rate and rhythm. There is a normal S1, S2. There is no S3, S4, rub, or murmur. LUNGS: Clear to auscultation and percussion bilaterally. No wheezing. BACK: No CVA tenderness. No muscular spasm. ABDOMEN: Globally benign. Good bowel sounds. No hepatosplenomegaly. BACK: No CVA tenderness. No muscular spasm. EXTREMITIES: Right upper extremity strength is 4.5/5 as is the right lower extremity. Sensation intact, all extremities. Left upper and lower extremity strength is 5/5. SKIN: No rashes or nonhealing ulcers. MUSCULOSKELETAL: Full range of motion at all joints. No joint swelling. NEUROLOGIC: Cranial nerves 2 through 12 intact. Extremity strength as noted above. Extremity sensation as noted above. VASCULAR: Carotids not palpable on the left. Right carotid is 2+. There is a bruit on the right. There is no bruit on the left. Radials and femorals are 2+/2+ bilaterally. LYMPHATIC: Negative for cervical, clavicular, femoral adenopathy. LABORATORY DATA: Sodium 137, potassium 3.8, BUN 19, creatinine 1.3. Hematocrit 15, hemoglobin 11, platelets 241,000, white count 8.0. CT and MRI as above. IMPRESSION: Recovering clinically from his left cerebral stroke. Right upper extremity weakness is largely resolved. On physical examination, there is no carotid bruit on the left and there is one on the right. Given the contrasting radiologic findings, I would favor a bilateral carotid angiogram to delineate the cerebral anatomy. We will discuss with Dr. Carr. MD LUIS ALBERTO Martínez/KATLYN /[id number]
--- NOTE | 2019-02-12 20:16 | Progress Note ---
DATE: 02/12/2019 REASON FOR ADMISSION: Stroke; referred by Dr. Kisha Carr. SUBJECTIVE: Today, the patient is feeling better. Not short of breath. Stroke symptoms continue to resolve. OBJECTIVE: VITAL SIGNS: Blood pressure 140/70, pulse 80 and regular respirations 16 and unlabored. Echocardiogram shows negative bubble study. EF 50-55 percent with LVEDD 4.6 cm. Cardiac catheterization was performed by Dr. Hummel. This revealed an occluded left internal carotid artery. There was a 90% stenosis at the base of the vertebral on the left. The right internal carotid artery had a 50% stenosis. There were scattered plaques in the coronaries, but none required intervention. PHYSICAL EXAMINATION: GENERAL: Breathing comfortably. No distress. NECK: Supple. Nontender. No JVD. CARDIAC: Shows a regular rate and rhythm. Normal S1, S2. PULMONARY: Clear to auscultation and percussion. ABDOMEN: Globoid benign. Good bowel sounds. NEUROLOGIC: Right upper extremity strength and right lower extremity strength practically back to normal. IMPRESSION: Doing well. No indications for surgical intervention at this time. The right internal carotid artery stenosis of 50%. Will be treated medically and observed serially. Thank you much for asking me see this nice man. MD LUIS ALBERTO Martínez/KATLYN /[id number]
--- NOTE | 2019-02-13 11:56 | Discharge Summary ---
FINAL DISCHARGE DIAGNOSES: 1. Acute cerebrovascular accident seen on imaging studies. 2. Left internal carotid stenosis confirmed via carotid angiogram performed on 02/11/2019 by Cardiology. 3. Status post left heart catheterization performed on 02/11/2019, with clean coronaries. No percutaneous coronary intervention needed. 4. Type 2 diabetes. 5. Hyperlipidemia. 6. Hypertension. 7. Parotid nodule, needs outpatient followup with ENT, which I discussed this with the patient. He verbalized understanding to follow up as an outpatient. CONSULTANTS: We had Cardiovascular Surgery, Cardiology, Neurology. PHYSICAL EXAMINATION: VITAL SIGNS: Temperature is 96.8, pulse 62, respiratory rate is 18, blood pressure 131/70, pulse ox 98% on room air. LABORATORY FINDINGS: Show white count of 7.2, hemoglobin 11.3, hematocrit 33.6, platelets of 243. Coagulation PT 13, INR 0.97, PTT 35.9. Chemistry; sodium 139, potassium 3.8, chloride 108, bicarb 23, anion gap of 11, BUN is 12, creatinine is 0.96, glucose is 82. A1c was 6.2. LFTs within normal range. Troponins were negative. Albumin was 3. LDL was 75. MICROBIOLOGY: None. IMAGING STUDIES: Chest x-ray shows no acute radiographic abnormality. CT cervical spine shows no acute abnormality. CT of the head showed acute and subacute lacunar infarct in the left putamen. Age-indeterminate small left centrum semiovale lacunar infarct. Carotid Dopplers consistent with a left internal carotid stenosis. MRI of the brain shows an unchanged late acute or early subacute nonhemorrhagic posterior left striatocapsular infarct. Left ICA occluded or flow-limiting stenosis. Small chronic insufficiency infarct along with the left internal MCA border zone. Mild chronic microvascular ischemic changes. Incidental small left parotid nodes as described. The patient was advised to follow up with ENT specialist for the parotid nodule. Carotid Doppler showed right internal carotid 40% to 49% and then the left internal carotid shows total occlusion. CTA of the head and neck shows occlusion of the left internal carotid artery 2nd cervical segment through this cavernous segment with distal reconstitution at the ophthalmic ICA. No other significant stenosis of the cervical arteries. Subacute infarct of the left putamen stable. There is also reconstitution of the flow at the ophthalmic ICA on the left lower through other hemodynamics significant stenosis of the [place] of [place]. HOSPITAL COURSE: This is a 73-year-old male, who came into the emergency room with complaints of right upper and lower extremity weakness that he reports that occurred around 3 a.m. early in the morning of the day of admission. The patient's symptoms occurred several hours before coming to the hospital. The patient was evaluated by the ER physician and the patient was outside of the tPA window. While here, imaging studies were consistent with an acute lacunar infarct in the left putamen. At that time, Neurology was consulted, but we were having issues with coverage. We did not have a neurologist available. But while here, the patient was maintained on anti-platelet therapy as well as statins. Further imaging studies were performed including a carotid ultrasound that showed a complete occlusion of the left internal carotid. CTA of the neck also showed complete occlusion of the left internal carotid. MRI of the brain confirmed an acute early subacute nonhemorrhagic posterior left striatocapsular infarct. It also showed evidence of the left ICA occluded or flow-limiting stenosis. At that time, Cardiology was consulted. A 2D echo was performed, showed no evidence of atrial fibrillation and showed an echo to be within normal range. I did consult with Cardiovascular Surgery for the internal carotid stenosis in which he came and evaluated the patient and recommended a carotid angiogram as well as a left heart catheterization. Left heart catheterization was performed including the carotid angiogram on 02/11/2019. The carotid angiogram was consistent with a left internal carotid stenosis at 100% occlusion, but had good collateral flow. As for the left heart catheterization, it was found to be normal with some diffuse disease, but no PCI indicated. At that time, CV Surgery was notified and based on the results seen, there was no surgical intervention needed at this time. The patient will not need any carotid endarterectomy nor any kind of carotid surgical intervention at this time. I personally spoke with Cardiothoracic Surgery as well as Cardiology and at this time, no surgical intervention is needed. I recommended discharge to home. The patient was discharged on dual anti-platelet therapy including a statin and he was given the phone number and addressed to a neurologist for followup in 1 to 2 weeks' time. He was also given information with Cardiology and Cardiothoracic Surgery to follow up as an outpatient. The patient was found to have a parotid nodule seen incidentally on imaging studies, which I advised him to follow up with an ENT specialist. We provided him with the phone number and address of an ENT doctor, who comes to our facility. The patient verbalized, he will follow up with the ENT for further management and care. On discharge, the patient was doing well with no complaints. He was ambulating well with physical therapy and occupational therapy. Physical medicine rehab was consulted and recommended only outpatient PT and OT as the patient was doing tremendously well. On discharge, vital signs were stable, labs reviewed and stable. The patient was seen, evaluated, and examined thoroughly on the day of discharge. No other complaints. The patient verbalized understanding and agreed to plan of care to follow up accordingly as an outpatient with the primary care physician in 1 week and Neurology in 1 to 2 weeks' time. Cardiology and vascular surgery in about 2 weeks' time. The patient was cleared for discharge by all consultants. MEDICATIONS: See med reconciliation form. DISPOSITION: Home. CONDITION: Stable. DIET: Heart healthy. In the event of any worsening symptoms, the patient was advised to come back to the ED for further evaluation. Discharge summary took greater than 35 minutes. MD LO Wilkins/KATLYN /[id number]
--- NOTE | 2019-02-13 16:09 | NUR ---
Order received for Home health. Clinicals faxed to [facility] [phone], f [phone]
--- NOTE | 2019-02-13 17:10 | NUR ---
REC'D PHONE CALL FROM PT ASKING WHAT HOME HEALTH WAS ARRANGED FOR HIM [facility] UNABLE TO ACCEPT POSSIBILITY THAT [facility] [phone] MAY TAKE HIS INS EMAIL TO CM DEBORAH Guillen TO F/U ON SATURDAY I CALLED AND SPOKE WITH PT AND EXPLAINED AND TOLD HIM WE WILL CALL HIM SATURDAY WHEN HH SECURED HE UNDERSTANDS AND IS "DOING WELL" CM TO FOLLOW
--- NOTE | 2019-02-14 14:03 | NUR ---
home health referral sent to [facility] - [phone], , spoke with alberta Addendum: 02/16/19 at 1209 by Mame Acevedo Received call from Patt [phone], she states they are not taking [employer] now, i informed her the insurance had said they were a [employer] in [place]. She is calling insurance to verify, Patt also states the patient's insurance plan is ending 03/10/19 Addendum: 02/16/19 at 1431 by Mame Acevedo final decision from [facility] who states they are unable to take patient.
--- NOTE | 2019-02-16 08:59 | NUR ---
clinicals sent to home care providers [phone],
--- NOTE | 2019-02-16 09:25 | NUR ---
call to [facility] [phone] inquiring about fax number. left voicemaill with cm's call back
--- NOTE | 2019-02-16 10:55 | NUR ---
Spoke with Taina [phone] who states to send referral, she is reaching out to insurance. sent to [phone], Taina states she will call me back Addendum: 02/16/19 at 1434 by Mame Acevedo CM call placed to taina to inquire about status Addendum: 02/16/19 at 1511 by Mame Acevedo CM faxed a facesheet to [phone]
--- NOTE | 2019-02-16 16:04 | NUR ---
Spoke with patient about having trouble finding a home health company in network with his insurance. Patient states he is doint good, walking alright, "not running, but moving pretty well". Patient verbalizes understanding about inability to find a company, states he has had trouble keeping a PCP d/t same issues, has had to switch a couple times. Informed patient he could possibly call insurance to inquire about companies, this CM has done that, and the companies given stated they were not in network. Patient states his niece is coming tomorrow and they will discuss Spoke to Dr. Carr, he states when he rounds tomorrow, he can provide a script for outpatient pt/ot.
--- NOTE | 2019-02-16 16:21 | NUR ---
ON EVENING OF DISCHARGE I WAS APPROACHED BY NURSE LILLIE STATING THERE WAS A RX FOR OP PT/OT EVAL I WENT INTO PT'S ROOM TO EXPLAIN OP P.T. VERSES HOME P.T. PT RELUCTANT TO ANY THERAPY AT FIRST THEN DECIDED ON HOME P.T. DUE TO TRANSPORTATION ISSUES LILLIE PUT ORDER IN FOR HOME PT/OT EVAL
--- NOTE | 2019-02-17 14:38 | NUR ---
received an order from Dr. Carr for outpatient PT/OT. Spoke to patient, he states he will not have a ride until next week but he allows and chooses for information to be sent to [facility]. order and facesheet sent to [phone], [phone]
== END 2019-02-12 18:23 | disposition home or self-care (01) | DRG 65 ==
LOC: ER 18:29 → ERHOLD 20:33 → MED/SURG 21:34 → OBSVTOIN 02-09 08:33 → INTOOBSV 02-09 08:33
PROVIDERS: ADMIT Internal Medicine; ATTEND Internal Medicine
PROC: 4A023N7 Measurement of Cardiac Sampling and Pressure, Left Heart, Percutaneous Approach (ICD-10-PCS; principal; 2019-02-11)
PROC: B2111ZZ Fluoroscopy of Multiple Coronary Arteries using Low Osmolar Contrast (ICD-10-PCS; 2019-02-11)
PROC: B3081ZZ Plain Radiography of Bilateral Internal Carotid Arteries using Low Osmolar Contrast (ICD-10-PCS; 2019-02-11)
PROC: B30 Imaging, Upper Arteries, Plain Radiography (ICD-10-PCS; 2019-02-11)
PROC: B3021ZZ Plain Radiography of Left Subclavian Artery using Low Osmolar Contrast (ICD-10-PCS; 2019-02-11)
DX: I63.9 Cerebral infarction, unspecified (principal); G81.91 Hemiplegia, unspecified affecting right dominant side; I65.22 Occlusion and stenosis of left carotid artery; E11.9 Type 2 diabetes mellitus without complications; E78.5 Hyperlipidemia, unspecified; D11.0 Benign neoplasm of parotid gland; E03.9 Hypothyroidism, unspecified; I45.10 Unspecified right bundle-branch block; I65.21 Occlusion and stenosis of right carotid artery; R47.81 Slurred speech; I10 Essential (primary) hypertension; Z79.4 Long term (current) use of insulin
CPT/HCPCS: 36415; 70450; 70496; 70498; 70551; 71045; 72125; 80048; 80053; 80061; 82550; 82553; 82948; 83036; 84484; 85025; 85610; 85730; 92523; 93005; 93306; 93454; 93880; 97139; 99284; C1766; G0378; J1650; J2001; J2250; J3010; J7030; J7050; Q9967

== ENCOUNTER → 2024-10-19 | Outpatient (REF) | payer MEDICARE ==
[~2024-10-19] MED LIST: AMLODIPINE BES2.5 MG PO; ASPIRIN EC81 MG PO; ASPIRIN81 MG PO; ATORVASTATIN CA40 MG PO; GLIMEPIRIDE1 MG PO; LEVOTHYROXINE75 MCG PO; LIPITOR20 MG PO; LISINOPRIL-HCT1 EAC1 PO; LISINOPRIL10 MG PO; METFORMIN HCL500 MG PO; OMEPRAZOLE40 MG PO; ONE-TABLET-DAI1 EACH PO; PLAVIX75 MG PO; VITAMIN B-121000 MCG PO
== END ==
LOC: DX 08:23
PROVIDERS: ATTEND Nurse Practitioner
DX: D50.8 Other iron deficiency anemias (principal)
CPT/HCPCS: 74250

== ENCOUNTER → 2024-12-04 | Outpatient (REF) | payer MEDICARE ==
[2024-12-04 10:23] LABS: EST GLOMERULAR FILTRATION RATE 24.0 ML/MIN (>=60)
== END ==
LOC: CT 08:58
PROVIDERS: ATTEND Internal Medicine Cardiovascular Disease
DX: I65.23 Occlusion and stenosis of bilateral carotid arteries (principal)
CPT/HCPCS: 36415; 82565; 84520